=== PATIENT | female | born 1985 | race African-American/Black ===

== ENCOUNTER 2018-01-24 16:00 | Inpatient (IN) ==
[2018-01-24] MEDS ORDERED: ONDANSETRON 4 MG/2 ML VIAL IV PRN (16:13)
[2018-01-24] MEDS ORDERED: ePHEDrine 50 MG/ML AMP IV PRN (16:17)
[2018-01-24] MEDS ORDERED: LACTATED RINGERS 1,000 ML IV ONE (16:17)
[2018-01-24] MEDS ORDERED: ONDANSETRON 4 MG/2 ML VIAL IV ONE (16:17)
[2018-01-24] MEDS ORDERED: FAMOTIDINE 20 MG/2 ML VIAL IV ONE (16:17)
[2018-01-24] MEDS ORDERED: hydrOXYzine HCL 25 MG/1 ML VIAL IM PRN (16:17)
[2018-01-24] MEDS ORDERED: CITRIC ACID/SODIUM CITRATE 30 ML UDCUP PO ONE (16:17)
[2018-01-24] MEDS ORDERED: PROMETHAZINE 25 MG/1 ML VIAL IM ONE (16:17)
[2018-01-24] MEDS ORDERED: diphenhydrAMINE 50 MG/1 ML VIAL IV PRN ×2 (16:17)
[2018-01-24] MEDS ORDERED: NALOXONE 0.4 MG/ML VIAL IV PRN (16:17)
[2018-01-24] MEDS ORDERED: OXYTOCIN/LR 20 UNIT/1,000 ML BAG IV SCH (16:30)
[2018-01-24] MEDS ORDERED: fentaNYL 2 MCG/ROPIV 0.2% EPID 100 ML EPIDURAL SCH (16:30)
[2018-01-24] MEDS ORDERED: LACTATED RINGERS 1,000 ML IV SCH ×2 (16:30→20:30)
[2018-01-24 16:53] LABS: Basophils % 0.2 % (0.0-0.8); Eosinophils % 0.4 % (0.00-10.9); Hematocrit 34.5 VOL% (35.7-47.0); Hemoglobin 10.7 GM/DL (12.0-16.0); Immature Granulocytes % 0.5 %; Immature Granulocytes Absolute 0.05 #; Lymphocytes # 1.7 10*3/uL (1.4-4.0); Mean Corpuscular Hemoglobin 26 PG (27-34); Mean Platelet Volume 11.2 FL (9.6-12.0); Monocytes # 0.7 10*3/uL (0.11-0.8); Monocytes % 6.5 % (1.7-12.7); Neutrophils # 7.5 10*3/uL (1.4-7.4); Neutrophils % 75.4 % (38.7-73.9); Platelet Count 218 T/CUMM (130-400); Red Blood Count 4.06 MC/CUMM (3.8-5.5); Red Cell Distribution Width 14.6 % (9.3-17.3); White Blood Count 9.9 T/CUMM (4-12)
[2018-01-24] MEDS ORDERED: CLINDAMYCIN INJ 900 MG in PREMIX 1 EACH IV SCH (17:00)
[2018-01-24] MEDS: MEPERIDINE 50 MG/1 ML VIAL IV PRN ×2 (18:15→20:15)
[2018-01-24] MEDS ORDERED: IBUPROFEN 800 MG TABLET PO ONE (20:07)
[2018-01-24] MEDS ORDERED: IBUPROFEN 800 MG TABLET PO PRN (20:08)
[2018-01-24] MEDS ORDERED: KETOROLAC 15 MG/1 ML VIAL IV PRN (20:08)
[2018-01-24] MEDS ORDERED: BISACODYL 10 MG SUPP RECTAL PRN (20:08)
[2018-01-24] MEDS ORDERED: MAGNESIUM HYDROXIDE SUSP 30 ML UDCUP PO PRN (20:08)
[2018-01-24] MEDS ORDERED: ACETAMINOPHEN 325 MG TABLET PO PRN (20:08)
[2018-01-24 20:36] LABS: Cord Venous Blood PCO2 34.6 MMHG; Cord Venous Blood PO2 40.9
[2018-01-24 20:40] LABS: Cord Arterial Blood HCO3 20.2 MMOL/L
[2018-01-25] MEDS: IBUPROFEN 800 MG TABLET PO PRN ×4 (02:15→23:50)
[2018-01-25] MEDS: DOCUSATE SODIUM 100 MG CAPSULE PO SCH ×3 (02:15→20:15)
[2018-01-25 02:47] LABS: Basophils % 0.3 % (0.0-0.8); Eosinophils % 0.3 % (0.00-10.9); Hematocrit 29.9 VOL% (35.7-47.0); Hemoglobin 9.6 GM/DL (12.0-16.0); Immature Granulocytes % 0.5 %; Immature Granulocytes Absolute 0.06 #; Lymphocytes # 1.4 10*3/uL (1.4-4.0); Lymphocytes % 11.5 % (21.3-54.2); Mean Corpuscular HGB Conc 32.1 GM/DL (32-36); Mean Corpuscular Hemoglobin 26 PG (27-34); Mean Corpuscular Volume 82.4 FL (87-102); Mean Platelet Volume 11.8 FL (9.6-12.0); Monocytes # 0.6 10*3/uL (0.11-0.8); Monocytes % 5.2 % (1.7-12.7); Neutrophils # 9.7 10*3/uL (1.4-7.4); Neutrophils % 82.2 % (38.7-73.9); Platelet Count 190 T/CUMM (130-400); Red Blood Count 3.63 MC/CUMM (3.8-5.5); Red Cell Distribution Width 14.6 % (9.3-17.3); White Blood Count 11.8 T/CUMM (4-12)
[2018-01-25] MEDS: MULTIVITAMIN (PRENATAL) TABLET PO SCH (09:07)
[2018-01-25] MEDS: IRON (CARBONYL)/VIT C/B12/FA TABLET PO SCH (14:02)
[2018-01-26] MEDS: DOCUSATE SODIUM 100 MG CAPSULE PO SCH (08:13)
[2018-01-26] MEDS: MULTIVITAMIN (PRENATAL) TABLET PO SCH (08:13)
[2018-01-26] MEDS: IRON (CARBONYL)/VIT C/B12/FA TABLET PO SCH (08:13)
[2018-01-26 08:30] VITALS: BP 126/81
== END 2018-01-26 09:55 | disposition home or self-care (01) | DRG 560 ==
LOC: N.LD 16:00 → N.OB 21:45
PROVIDERS: ADMIT Obstetrics & Gynecology; ATTEND Obstetrics & Gynecology